=== PATIENT | female | born 1975 | race Caucasian/White ===

== ENCOUNTER 2017-09-11 09:13 | Emergency (ER) | payer SELFPAY ==
[~2017-09-11] VITALS: Ht 165.1 cm; Wt 86.2 kg
[2017-09-11] MEDS ORDERED: ASPIRIN 81 MG CHEW (CHILDREN'S ASA) PO ONE (09:45)
[2017-09-11 09:51] LABS: BASOPHILS % (AUTO) 0 % (0-10); EOSINOPHILS # (AUTO) 0.2 10^3/uL (0.0-0.3); EOSINOPHILS % (AUTO) 2 % (0-10); HEMATOCRIT 39 % (35-52); LYMPHOCYTES # (AUTO) 3.5 X 10^3 (1.0-4.0); LYMPHOCYTES % (AUTO) 40 % (12-44); MEAN CORPUSCULAR HGB CONC 36 G/DL (32-36); MEAN CORPUSCULAR VOLUME 95 FL (80-99); MEAN PLATELET VOLUME 10.1 FL (7.4-10.4); MONOCYTES % (AUTO) 12 % (0-12); NEUTROPHILS % (AUTO) 46 % (42-75); PLATELET COUNT 295 10^3/uL (130-400); RED BLOOD COUNT 4.06 10^6/uL (4.35-5.85); RED CELL DISTRIBUTION WIDTH 12.8 % (10.0-14.5); WHITE BLOOD COUNT 8.7 10^3/uL (4.3-11.0)
[2017-09-11 09:52] LABS: MEAN CORPUSCULAR HEMOGLOBIN 34 PG (25-34)
[2017-09-11] MEDS ORDERED: NS IV STA (10:12)
[2017-09-11] MEDS ORDERED: RANITIDINE IV STA (10:12)
--- NOTE | 2017-09-11 10:13 | Diagnostic Imaging Report ---
INDICATION: Shortness of air. Palpitations. COMPARISON: None FINDINGS: Single frontal view of the chest demonstrates normal heart size and pulmonary vascularity. The lungs are well aerated and clear. No large pleural effusion or pneumothorax is seen. The visualized osseous structures show no acute abnormalities. IMPRESSION: 1. No acute cardiopulmonary process. Dictated by: Dictated on workstation # [id number]
[2017-09-11] MEDS ORDERED: raNItidine 50 MG/2 ML INJ (ZANTAC) IV SCH (10:15)
[2017-09-11] MEDS ORDERED: ONDANSETRON 4 MG/2 ML (SDV) Z0FRAN IVP ONE (10:15)
[2017-09-11 10:17] LABS: ALANINE AMINOTRANSFERASE 28 U/L (0-55); ALBUMIN 4.2 GM/DL (3.2-4.5); ALKALINE PHOSPHATASE 82 U/L (40-136); BILIRUBIN,TOTAL 0.2 MG/DL (0.1-1.0); BUN/CREATININE RATIO 9; CALCIUM 9.2 MG/DL (8.5-10.1); CARBON DIOXIDE 25 MMOL/L (21-32); CHLORIDE 111 MMOL/L (98-107); CREATININE SERUM 0.68 MG/DL (0.60-1.30); GFR ESTIMATED > 60; GLUCOSE 90 MG/DL (70-105); MAGNESIUM 2.3 MG/DL (1.8-2.4); SODIUM 141 MMOL/L (135-145); TOTAL PROTEIN 6.8 GM/DL (6.4-8.2)
[2017-09-11 10:24] LABS: MYOGLOBIN SERUM 31.1 NG/ML (10.0-92.0)
--- NOTE | 2017-09-11 10:33 | ED General ---
General Chief Complaint: Cardiac/General Problems Stated Complaint: PRESSURE IN CHEST AND JAW PAIN Nursing Triage Note: ARRIVED VIA AMB TO ROOM 04. COMPLAINS OF WAKING UP AT 0700 AND FEELING WINDED THEN STARTED HAVING PALPITAITONS ALONG WITH RIGHT JAW PAIN. Nursing Sepsis Screen: No Definite Risk Source of Information: Patient Exam Limitations: No Limitations History of Present Illness Date Seen by Provider: September 11, 2017 Time Seen by Provider: 10:00 Initial Comments Here with report of shortness of breath this morning and felt palpitations. Patient has history of atrial fibrillation and mitral valve prolapse. She also had fairly significant reflux this morning and she is not sure what that is about. Had been doing okay until recently. Denies vomiting but does have nausea. Feels kind of weak today. Timing/Duration: 1-3 Hours Severity: Mild, Moderate Modifying Factors: improves with Rest Associated Systoms: Chest Pain (epigastric); No Cough, No Fever/Chills; Nausea/ Vomiting, Shortness of Air, Weakness Allergies and Home Medications Allergies Coded Allergies: No Known Drug Allergies (Unverified , 09/11/17) Patient Home Medication List Home Medication List Reviewed: Yes Review of Systems Constitutional: see HPI; No chills, No fever EENTM: no symptoms reported Respiratory: see HPI; No cough; dyspnea on exertion Cardiovascular: see HPI, chest pain, palpitations Gastrointestinal: No abdominal pain; nausea; No vomiting Genitourinary: no symptoms reported Musculoskeletal: no symptoms reported All Other Systems Reviewed Negative Unless Noted: Yes Past Aroqczp-Ofrdus-Smvwhr Hx Past Med/Social Hx: Reviewed Nursing Past Med/Soc Hx Patient Social History Alcohol Use: Denies Use Recreational Drug Use: Yes Drug of Choice: POT Smoking Status: Never a Smoker Recent Foreign Travel: No Contact w/Someone Who Travel: No Recent Infectious Disease Expo: No Recent Hopitalizations: No Past Medical History Surgeries: Yes (SPINAL FUSION, DISCECTOMY, HERNIA) Bowel Surgery Respiratory: No Cardiac: Yes (MITRAL VALVE) Atrial Fibrillation Neurological: No : No Last Menstrual Period: Aug 21, 2017 Genitourinary: No Gastrointestinal: No Musculoskeletal: No Endocrine: No HEENT: No Cancer: No Psychosocial: Yes Anxiety Integumentary: No Family Medical History Reviewed Nursing Family Hx No Pertinent Family Hx Physical Exam Vital Signs Vital Signs - First Documented 09/11/17 09:13 Temp 98.0 Pulse 79 Resp 18 B/P (MAP) 128/88 (101) Pulse Ox 98 O2 Delivery Room Air Capillary Refill : Less Than 3 Seconds General Appearance: No Apparent Distress, WD/WN HEENT: PERRL/EOMI, Pharynx Normal Neck: Non Tender, Supple Respiratory: Lungs Clear, Normal Breath Sounds, No Accessory Muscle Use, No Respiratory Distress Cardiovascular: Regular Rate, Rhythm, No Edema, Systolic Murmur Gastrointestinal: Non Tender, Soft Back: Normal Inspection, No CVA Tenderness, No Vertebral Tenderness Extremity: Normal Range of Motion, Non Tender Neurologic/Psychiatric: Alert, Oriented x3 Skin: Normal Color, Warm/Dry Progress/Results/Core Measures Suspected Sepsis Recent Fever Within 48 Hours: No Infection Criteria Present: None New/Unexplained Altered Menta: No Sepsis Screen: No Definite Risk SIRS Temperature:98.0 Pulse: 79 Respiratory Rate: 18 Laboratory Tests 09/11/17 09:30: White Blood Count 8.7 Blood Pressure 128 /88 Mean: 101 Laboratory Tests 09/11/17 09:30: Creatinine 0.68, INR Comment 1.0, Platelet Count 295, Total Bilirubin 0.2 Results/Orders Lab Results Laboratory Tests Test 09/11/17 09:30 Range/Units White Blood Count 8.7 4.3-11.0 10^3/uL Red Blood Count 4.06 L 4.35-5.85 10^6/uL Hemoglobin 14.0 11.5-16.0 G/DL Hematocrit 39 35-52 % Mean Corpuscular Volume 95 80-99 FL Mean Corpuscular Hemoglobin 34 25-34 PG Mean Corpuscular Hemoglobin Concent 36 32-36 G/DL Red Cell Distribution Width 12.8 10.0-14.5 % Platelet Count 295 130-400 10^3/uL Mean Platelet Volume 10.1 7.4-10.4 FL Neutrophils (%) (Auto) 46 42-75 % Lymphocytes (%) (Auto) 40 12-44 % Monocytes (%) (Auto) 12 0-12 % Eosinophils (%) (Auto) 2 0-10 % Basophils (%) (Auto) 0 0-10 % Neutrophils # (Auto) 4.0 1.8-7.8 X 10^3 Lymphocytes # (Auto) 3.5 1.0-4.0 X 10^3 Monocytes # (Auto) 1.0 0.0-1.0 X 10^3 Eosinophils # (Auto) 0.2 0.0-0.3 10^3/uL Basophils # (Auto) 0.0 0.0-0.1 10^3/uL Prothrombin Time 13.0 12.2-14.7 SEC INR Comment 1.0 0.8-1.4 Activated Partial Thromboplast Time 28 24-35 SEC D-Dimer 0.30 0.00-0.49 UG/ML Sodium Level 141 135-145 MMOL/L Potassium Level 4.0 3.6-5.0 MMOL/L Chloride Level 111 H 98-107 MMOL/L Carbon Dioxide Level 25 21-32 MMOL/L Anion Gap 5 5-14 MMOL/L Blood Urea Nitrogen 6 L 7-18 MG/DL Creatinine 0.68 0.60-1.30 MG/DL Estimat Glomerular Filtration Rate > 60 BUN/Creatinine Ratio 9 Glucose Level 90 70-105 MG/DL Calcium Level 9.2 8.5-10.1 MG/DL Magnesium Level 2.3 1.8-2.4 MG/DL Total Bilirubin 0.2 0.1-1.0 MG/DL Aspartate Amino Transf (AST/SGOT) 20 5-34 U/L Alanine Aminotransferase (ALT/SGPT) 28 0-55 U/L Alkaline Phosphatase 82 40-136 U/L Myoglobin 31.1 10.0-92.0 NG/ML Troponin I < 0.30 <0.30 NG/ML B-Type Natriuretic Peptide 12.2 <100.0 PG/ML Total Protein 6.8 6.4-8.2 GM/DL Albumin 4.2 3.2-4.5 GM/DL My Orders Orders - SRI VERA MD Cbc With Automated Diff (09/11/17:39) Magnesium (09/11/17:39) Chest 1 View, Ap/Pa Only (09/11/17:39) Ekg Tracing (09/11/17:39) Cardiac Profile 1 (09/11/17:39) Comprehensive Metabolic Panel (09/11/17:39) Myoglobin Serum (09/11/17:39) Protime With Inr (09/11/17:39) Partial Thromboplastin Time (09/11/17:39) O2 (5/8/18 09:39) Monitor-Rhythm Ecg Trace Only (09/11/17 09:39) Lipid Panel (09/12/17 06:00) Saline Lock/Iv-Start (09/11/17 09:39) BNP (09/11/17 09:39) Fibrin Degradation Products (09/11/17 09:39) Aspirin Chewable Tablet (Baby Aspirin Ch (09/11/17 09:45) Ondansetron Injection (Zofran Injectio (09/11/17 10:15) Ranitidine Injection (Zantac Injection) (09/11/17 10:12) Ranitidine Injection (Zantac Injection) (09/11/17 10:15) Ns Iv 1000 Ml (Sodium Chloride 0.9%) (09/11/17 10:35) Medications Given in ED Current Medications Medications Dose Ordered Sig/Pito Route Start Time Stop Time Status Last Admin Dose Admin Aspirin 324 mg ONCE ONCE PO 09/11/17 09:45 09/11/17 09:46 DC 09/11/17 10:03 324 MG Ondansetron HCl 4 mg ONCE ONCE IVP 09/11/17 10:15 09/11/17 10:16 DC 09/11/17 10:28 4 MG Sodium Chloride 1,000 ml @ 0 mls/hr Q0M ONCE IV 09/11/17 10:35 09/11/17 10:36 DC 09/11/17 10:43 1,000 MLS/HR Vital Signs/I&O 09/11/17 09:13 Temp 98.0 Pulse 79 Resp 18 B/P (MAP) 128/88 (101) Pulse Ox 98 O2 Delivery Room Air Capillary Refill : Less Than 3 Seconds Blood Pressure Mean: 101 Progress Note : Progress Note Seen and evaluated. IV, labs, EKG, chest x-ray, ASA 324 mg by mouth, ranitidine 50 mg IV and Zofran 4 mg IV ordered. Normal saline 1 L bolus. Monitor patient. 1110: No acute findings. Feels better now. Discharged home with return precautions. Patient verbalize understanding instructions and agreement with plan. ECG Initial ECG Impression Date: September 11, 2017 Initial ECG Impression Time: 09:33 Initial ECG Rate: 60 Initial ECG Rhythm: Normal Sinus Initial ECG Impression: Normal Initial ECG Comparisson: No Previous ECG Available Comment Sinus rhythm with normal axis. No evidence of ST elevation [place]. No previous available for comparison. Interpreted by me. Diagnostic Imaging Diagonstic Imaging: Xray Plain Films/CT/US/NM/MRI: chest [facility]. [place], [place] NAME: NEREYDA ODONNELL [facility] REC#: [id number] PT STATUS: REG ER : 1975 PHYSICIAN: SRI VERA MD ADMIT DATE: 09/11/17/ER Draft Date of Exam:09/11/17 CHEST 1 VIEW, AP/PA ONLY INDICATION: Shortness of air. Palpitations. COMPARISON: None FINDINGS: Single frontal view of the chest demonstrates normal heart size and pulmonary vascularity. The lungs are well aerated and clear. No large pleural effusion or pneumothorax is seen. The visualized osseous structures show no acute abnormalities. IMPRESSION: 1. No acute cardiopulmonary process. Dictated on workstation # [id number] Dict: 09/11/17 1010 Trans: 09/11/17 1013 [facility] [id number] Interpreted by: KRISHNA MCCLAIN MD Electronically signed by: Departure Impression Primary Impression: Abdominal pain, epigastric Additional Impression: Chest pain Qualified Codes: R07.9 - Chest pain, unspecified Disposition: 01 HOME, SELF-CARE Condition: Improved Departure-Patient Inst. Decision time for Depature: 11:15 Referrals: NO,LOCAL PHYSICIAN (PCP/Family) Primary Care Physician Patient Instructions: Acute Abdomen (Belly Pain), Adult (DC), Chest Pain (DC) Add. Discharge Instructions: All discharge instructions reviewed with patient and/or family. Voiced understanding. You may take [id number]-ltcrpsm famotidine (Pepcid) or ranitidine (Zantac) daily as needed for stomach upset. Follow-up with your Dr. in one to 2 days for recheck. Return for worse pain, fever, vomiting, weakness, breathing problems or other concerns as needed. Clear liquid diet today and then advance as tolerated. Work/School Note: Work Release Form Date Seen in the Emergency Department: September 11, 2017 Return to Work: September 12, 2017 Restrictions: No Restrictions SRI VERA MD September 11, 2017 10:33
[2017-09-11] MEDS ORDERED: NS IV 1000 ML 1,000 ML IV ONE (10:35)
[2017-09-11 11:44] VITALS: BP 118/75
== END 2017-09-11 11:44 | disposition home or self-care (01) ==
LOC: ER 09:35
DX: R10.13 Epigastric pain (principal); R07.9 Chest pain, unspecified; I48.91 Unspecified atrial fibrillation; F41.9 Anxiety disorder, unspecified; F12.10 Cannabis abuse, uncomplicated; Z87.19 Personal history of other diseases of the digestive system; Z98.1 Arthrodesis status
CPT/HCPCS: 36415; 71045; 80053; 83735; 83874; 83880; 84484; 85025; 85379; 85610; 85730; 93005; 93041; 96361; 96374; 96375

== ENCOUNTER → 2020-01-28 | Outpatient (CLI) | payer SELFPAY ==
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
== END ==
LOC: RAD 12:13
PROVIDERS: ATTEND Nurse Practitioner Family
DX: M51.17 Intervertebral disc disorders with radiculopathy, lumbosacral region (principal); M47.27 Other spondylosis with radiculopathy, lumbosacral region; Z87.828 Personal history of other (healed) physical injury and trauma
CPT/HCPCS: 72148